=== PATIENT | female | born 1950 | race Caucasian/White ===

== ENCOUNTER 2023-11-26 22:21 | Inpatient (IN) | payer BC ==
[~2023-11-26] VITALS: Ht 165.1 cm; Wt 68.2 kg
[2023-11-26] MEDS ORDERED: RACEPINEPHRINE HCL 2.25% 0.5 ML NEBU ONE (22:41)
[2023-11-26] MEDS ORDERED: TRANEXAMIC ACID 1,000 MG/10 ML VIAL ONE (22:44)
[2023-11-26] MEDS: IV NORMAL SALINE 1000 ML BAG IV ONE (22:45)
[2023-11-26] MEDS: RACEPINEPHRINE HCL 2.25% 0.5 ML NEBU NEB ONE (22:45)
[2023-11-26 23:06] LABS: BASOPHILS % (AUTO) 0.2 % (0.0-2.0); EOSINOPHILS # (AUTO) 0.5 K/uL (0.0-0.7); EOSINOPHILS % (AUTO) 3.1 % (0.0-7.0); HEMATOCRIT 24.9 % (31.2-41.9); HEMOGLOBIN 8.1 g/dL (10.9-14.3); LYMPHOCYTES # (AUTO) 2.8 K/uL (0.8-4.8); LYMPHOCYTES % (AUTO) 16.8 % (20.5-51.5); MEAN CORPUSCULAR HEMOGLOBIN 28.4 uug (24.7-32.8); MEAN CORPUSCULAR HGB CONC 33 g/dL (32.3-35.6); MEAN CORPUSCULAR VOLUME 87.3 fL (75.5-95.3); MONOCYTES # (AUTO) 0.8 K/uL (0.1-1.30); MONOCYTES % (AUTO) 4.6 % (0.0-11.0); NEUTROPHILS # (AUTO) 12.6 K/uL (1.8-8.9); NEUTROPHILS % (AUTO) 75.3 % (38.5-71.5); PLATELET COUNT (AUTO) 406 K/uL (179-408); RED BLOOD CELL COUNT(AUTO) 2.85 MIL/uL (3.63-4.92); RED CELL DISTRIBUTION WIDTH 16.6 % (12.3-17.7); WHITE BLOOD COUNT (AUTO) 16.7 K/uL (3.8-11.8)
[2023-11-26 23:12] LABS: DIFFERENTIAL COMMENT 1
[2023-11-26 23:35] LABS: ALANINE AMINOTRANSFERASE 45 U/L (14-59); ALBUMIN 1.8 g/dL (3.4-5.0); ALKALINE PHOSPHATASE 158 U/L (50-136); ASPARTATE AMINOTRANSFERASE 37 U/L (15-37); BILIRUBIN,DIRECT 0.3 mg/dL (0.0-0.2); BILIRUBIN,TOTAL 0.8 mg/dL (0.2-1.0); CARBON DIOXIDE 37 mmol/L (21-32); CHLORIDE 99 mmol/L (98-107); CREATININE 1.4 mg/dL (0.6-1.3); GLUCOSE 77 mg/dL (74-106); NT-PRO BNP 19657 pg/mL (0-125); POTASSIUM 4.2 mmol/L (3.5-5.1); SODIUM SERUM 140 mmol/L (136-145); TOTAL PROTEIN, SERUM 6.6 g/dL (6.4-8.2); UREA NITROGEN, BLOOD 73 mg/dL (7-18)
[2023-11-26 23:40] LABS: LACTIC ACID 2.1 mmol/L (0.4-2.0)
[2023-11-26] MEDS: TRANEXAMIC ACID 1,000 MG/10 ML VIAL IR ONE (23:40)
[2023-11-26] MEDS ORDERED: LIDOCAINE 2% 100 MG/5 ML SYRINGE ONE (23:40)
[2023-11-26 23:46] LABS: *BILIRUBIN,URIN NEGATIVE (NEGATIVE); *CLARITY,URINE SLIGHTLY CLOUDY (CLEAR); *COLOR,URINE YELLOW (YELLOW); *KETONES,URINE NEGATIVE (NEGATIVE); *PROTEIN,URINE NEGATIVE (NEGATIVE); LEUKOCYTE ESTERASE ,URINE 3+ (NEGATIVE); NITRITE, URINE NEGATIVE (NEGATIVE); PH,URINE 6.5 (5.0-8.0); UGLUCOSE NEGATIVE (NEGATIVE)
[2023-11-26 23:49] LABS: *BLOOD, URINE TRACE (NEGATIVE)
[2023-11-26] MEDS: LIDOCAINE 2% 100 MG/5 ML SYRINGE IV ONE (23:55)
[2023-11-27] MEDS ORDERED: AMIODARONE HCL 150 MG/3 ML VIAL IV ONE ×2 (00:08→00:58)
[2023-11-27] MEDS: AMIODARONE HCL IV 150 MG in IV DEXTROSE 5% 100 ML IV ONE (00:12)
[2023-11-27] MEDS ORDERED: AMIODARONE HCL IV 450 MG in IV DEXTROSE 5% 250 ML IV PRN (00:15)
[2023-11-27] MEDS ORDERED: PROPOFOL 100 ML ONE (00:20)
[2023-11-27 00:21] LABS: BACTERIA,URINE MANY /HPF (NONE SEEN); SQUAMOUS EPITHELIAL CELL,UR MODERATE /HPF (NONE SEEN); WBC,URINE 20-50 /HPF (0-3)
[2023-11-27 00:23] LABS: YEAST,URINE FEW /HPF (NONE SEEN)
[2023-11-27] MEDS ORDERED: IOHEXOL 350 100 ML INFUS..BTL ONE (00:28)
[2023-11-27] MEDS: PROPOFOL 100 ML IV ONE (00:40)
[2023-11-27] MEDS ORDERED: CEFTRIAXONE /D5W 50ML IVPB **ER PYXIS IV ONE (00:42)
[2023-11-27] MEDS: CEFTRIAXONE 1 G in IV DEXTROSE 5% 50 ML IV ONE (00:43)
[2023-11-27] MEDS ORDERED: levoFLOXacin 750MG/D5W 150 ML IV ONE (00:43)
[2023-11-27] MEDS: levoFLOXacin 750 MG/D5W 150 ML PIGGYBACK IV ONE (00:48)
[2023-11-27] MEDS ORDERED: MAGN400O6 GT (00:51)
[2023-11-27] MEDS ORDERED: METO25TA6 GT (00:51)
[2023-11-27] MEDS ORDERED: CYAN250T3 GT (00:51)
[2023-11-27] MEDS ORDERED: AMIO400T5 GT (00:51)
[2023-11-27] MEDS ORDERED: APIX5TAB GT (00:51)
[2023-11-27] MEDS ORDERED: ALBU2.5V38 IH (00:51)
[2023-11-27] MEDS ORDERED: ASPI81TA31 GT (00:51)
[2023-11-27] MEDS ORDERED: DONE10TA44 GT (00:51)
[2023-11-27] MEDS ORDERED: MULT-1275 PO (00:51)
[2023-11-27] MEDS ORDERED: ZINC50TA69 GT (00:51)
[2023-11-27] MEDS ORDERED: FURO40TA5 GT (00:51)
[2023-11-27] MEDS ORDERED: AMAN50SY GT (00:51)
[2023-11-27] MEDS ORDERED: ASCO500C18 GT (00:51)
[2023-11-27] MEDS ORDERED: NA P133E RC (00:51)
[2023-11-27] MEDS ORDERED: glargine insulin SUBCUT (00:51)
[2023-11-27] MEDS ORDERED: CHLO118L3 PO (00:51)
[2023-11-27] MEDS ORDERED: ACET160L44 GT (00:51)
[2023-11-27] MEDS ORDERED: IPRA0.2S48 NEB (00:51)
[2023-11-27] MEDS ORDERED: REMEDY ESSENTIAL ZINC PASTE 113 GM TP PRN (02:00)
[2023-11-27] MEDS ORDERED: PROPOFOL 100 ML IV PRN (02:00)
[2023-11-27] MEDS ORDERED: MAGNESIUM HYDROXIDE 30 ML LIQUID UDC PO PRN (02:00)
[2023-11-27] MEDS: levoFLOXacin 500 MG/D5W 500 MG in PREMIXED 1 EACH IV SCH (02:00)
[2023-11-27] MEDS ORDERED: ACETAMINOPHEN 325 MG TABLET PO PRN (02:00)
[2023-11-27] MEDS ORDERED: MAGNESIUM HYDROXIDE 30 ML LIQUID UDC GT PRN (02:00)
[2023-11-27] MEDS ORDERED: ONDANSETRON 4 MG/2 ML VIAL IV PRN (02:00)
[2023-11-27 06:21] LABS: BASOPHILS % (AUTO) 0.2 % (0.0-2.0); DIFFERENTIAL COMMENT 0; EOSINOPHILS # (AUTO) 0.1 K/uL (0.0-0.7); EOSINOPHILS % (AUTO) 0.5 % (0.0-7.0); LYMPHOCYTES # (AUTO) 1.5 K/uL (0.8-4.8); MEAN CORPUSCULAR HEMOGLOBIN 28.9 uug (24.7-32.8); MEAN CORPUSCULAR HGB CONC 33 g/dL (32.3-35.6); MEAN CORPUSCULAR VOLUME 88.1 fL (75.5-95.3); MONOCYTES # (AUTO) 0.8 K/uL (0.1-1.30); MONOCYTES % (AUTO) 5.9 % (0.0-11.0); NEUTROPHILS # (AUTO) 11.4 K/uL (1.8-8.9); NEUTROPHILS % (AUTO) 82.4 % (38.5-71.5); PLATELET COUNT (AUTO) 262 K/uL (179-408); RED CELL DISTRIBUTION WIDTH 16.8 % (12.3-17.7); WHITE BLOOD COUNT (AUTO) 13.8 K/uL (3.8-11.8)
[2023-11-27 06:46] LABS: HEMATOCRIT 20.8 % (31.2-41.9); RED BLOOD CELL COUNT(AUTO) 2.36 MIL/uL (3.63-4.92)
[2023-11-27 06:47] LABS: HEMOGLOBIN 6.8 g/dL (10.9-14.3)
[2023-11-27] MEDS: AMIODARONE HCL IV 450 MG in IV DEXTROSE 5% 250 ML IV PRN (07:20)
[2023-11-27] MEDS ORDERED: IPRATROPIUM BROMIDE 0.5 MG/2.5 ML NEBU NEB SCH ×2 (08:00→13:30)
[2023-11-27] MEDS: IV NS 1000 ML 1,000 ML IV PRN (08:00)
[2023-11-27] MEDS: ALBUTEROL SULFATE 2.5 MG/3 ML NEBU IH SCH (08:00)
[2023-11-27] MEDS: PANTOPRAZOLE SODIUM 40 MG VIAL IV SCH (08:12)
[2023-11-27] MEDS ORDERED: PANTOPRAZOLE SODIUM 40 MG VIAL ONE (08:16)
[2023-11-27] MEDS: ASCORBIC ACID 500 MG TABLET GT SCH (09:00)
[2023-11-27] MEDS: CYANOCOBALAMIN 100 MCG TABLET GT SCH (09:00)
[2023-11-27] MEDS ORDERED: NOREPINEPHRINE BITARTRATE 8 MG in IV NORMAL SALINE 242 ML IV PRN (09:00)
[2023-11-27] MEDS: METOPROLOL TARTRATE 25 MG TABLET GT SCH (09:00)
[2023-11-27] MEDS ORDERED: DONEPEZIL 10 MG TABLET GT SCH (09:00)
[2023-11-27] MEDS: MULTIVIT, IRON, MIN NO. 8, FA TABLET PO SCH (09:00)
[2023-11-27] MEDS ORDERED: CEFEPIME HCL 1 G in IV DEXTROSE 5% 50 ML IV SCH ×2 (09:00→14:00)
[2023-11-27] MEDS ORDERED: NOREPINEPHRINE BITARTRATE 4 MG/4 ML VIAL IV ONE (09:01)
[2023-11-27] MEDS: NOREPINEPHRINE BITARTRATE 8 MG in IV NORMAL SALINE 242 ML IV PRN (09:01)
[2023-11-27] MEDS ORDERED: MAGNESIUM SULFATE/D5W 200 ML ONE (09:14)
[2023-11-27] MEDS: MAGNESIUM SULFATE/D5W 100 ML IV ONE (09:15)
[2023-11-27 09:41] VITALS: BP 74/51
[2023-11-27] MEDS: PHENYLEPHRINE IV 50 MG in IV NORMAL SALINE 245 ML IV PRN (09:41)
[2023-11-27] MEDS ORDERED: PHENYLEPHRINE IV 50 MG in IV NORMAL SALINE 245 ML IV PRN (09:45)
[2023-11-27] MEDS ORDERED: CEFEPIME HCL 1 G VIAL ONE (10:07)
[2023-11-27] MEDS ORDERED: DONEPEZIL 5 MG TABLET ONE (10:07)
[2023-11-27] MEDS ORDERED: ASCORBIC ACID 500 MG TABLET ONE (10:08)
[2023-11-27] MEDS: CEFEPIME HCL 1 G in IV DEXTROSE 5% 50 ML IV SCH (10:17)
[2023-11-27] MEDS ORDERED: HYDROCORTISONE SOD SUCCINATE 100 MG/2 ML VIAL IV ONE (10:26)
[2023-11-27] MEDS: HYDROCORTISONE SOD SUCCINATE 100 MG/2 ML VIAL IV SCH (10:27)
[2023-11-27] MEDS: VANCOMYCIN IV 1,000 MG in IV DEXTROSE 5% 250 ML IV SCH (10:35)
[2023-11-27] MEDS ORDERED: MULT-213 PO (10:41)
[2023-11-27] MEDS ORDERED: INSU100V42 SUBCUT (10:44)
[2023-11-27 11:00] VITALS: O2SAT 100
[2023-11-27 14:16] LABS: BAND % (MANUAL) 10 % (0-10); EOSINOPHILS % (MANUAL) 1 % (0-8); LYMPHOCYTES % (MANUAL) 14 % (20-40); MONOCYTES % (MANUAL) 5 % (2-10); NEUTROPHILS % (MANUAL) 70 % (42-75)
[2023-11-27 14:17] LABS: ANISOCYTOSIS 1+; PLATELET ESTIMATE ADEQUATE; TOXIC GRANULATION MODERATE
[2023-11-28] MEDS ORDERED: DONEPEZIL 10 MG TABLET GT SCH (09:00)
== END 2023-11-27 11:18 | DRG 871 ==
LOC: ER 22:26 → TRANSITION 11-27 06:25
PROVIDERS: ADMIT Nurse Practitioner Acute Care; ATTEND Nurse Practitioner Acute Care
PROC: 5A1935Z Respiratory Ventilation, Less than 24 Consecutive Hours (ICD-10-PCS; principal; 2023-11-27)
PROC: 06HY33Z Insertion of Infusion Device into Lower Vein, Percutaneous Approach (ICD-10-PCS; 2023-11-27)
DX: A41.9 Sepsis, unspecified organism (principal); E43 Unspecified severe protein-calorie malnutrition; J15.9 Unspecified bacterial pneumonia; J69.0 Pneumonitis due to inhalation of food and vomit; R65.21 Severe sepsis with septic shock; J96.20 Acute and chronic respiratory failure, unspecified whether with hypoxia or hypercapnia; I21.A1 Myocardial infarction type 2; N17.0 Acute kidney failure with tubular necrosis; I47.20 Ventricular tachycardia, unspecified; D62 Acute posthemorrhagic anemia; N39.0 Urinary tract infection, site not specified; I69.959 Hemiplegia and hemiparesis following unspecified cerebrovascular disease affecting unspecified side; R04.2 Hemoptysis; E87.20 Acidosis, unspecified; G93.40 Encephalopathy, unspecified; E78.5 Hyperlipidemia, unspecified; I48.91 Unspecified atrial fibrillation; E88.09 Other disorders of plasma-protein metabolism, not elsewhere classified; F03.90 Unspecified dementia, unspecified severity, without behavioral disturbance, psychotic disturbance, mood disturbance, and anxiety; R13.10 Dysphagia, unspecified; Z93.0 Tracheostomy status; Z79.01 Long term (current) use of anticoagulants; Z93.1 Gastrostomy status; E86.1 Hypovolemia; E11.9 Type 2 diabetes mellitus without complications; E86.9 Volume depletion, unspecified; I11.0 Hypertensive heart disease with heart failure; I50.9 Heart failure, unspecified; Z79.82 Long term (current) use of aspirin; Z79.899 Other long term (current) drug therapy
CPT/HCPCS: 36415; 70030-TC; 71045; 82533; 83605; 84484; 85025; 85730; 86850; 86900; 86901; 87040; 93005; 94002; C9113; G0378; J0282; J0692; J0696; J1720; J1956; J2001; J3370; J3475; J3490; J7040; J7050; Q9967